=== PATIENT | male | born 1990 | race African-American/Black ===

== ENCOUNTER 2017-04-22 20:27 | Emergency (ER) | payer OTHER ==
[~2017-04-22] VITALS: Ht 182.9 cm; Wt 127.8 kg
[~2017-04-22 20:27] MED LIST: CIPROFLOXACN500 MG PO; FLEXERIL OR; NAPROSYN500 MG OR
[2017-04-22] MEDS ORDERED: MORPHINE SUL30 M3 PO (20:55)
[2017-04-22] MEDS ORDERED: FLEXERIL5 MG PO (20:56)
[2017-04-22] MEDS ORDERED: [UNRECOGNIZED DRUG - OTHER] (20:57)
[2017-04-22 21:23] LABS: URINE BILIRUBIN - DIPSTICK NEGATIVE (NEGATIVE); URINE BLOOD DIPSTICK NEGATIVE (NEGATIVE); URINE CLARITY CLEAR; URINE COLOR YELLOW; URINE GLUCOSE - DIPSTICK NEGATIVE (NEGATIVE); URINE KETONE NEGATIVE (NEGATIVE); URINE LEUK ESTERASE NEGATIVE (Negative); URINE NITRITE - DIPSTICK NEGATIVE (Negative); URINE PROTEIN - DIPSTICK NEGATIVE (NEG-TRACE); URINE SPECIFIC GRAVITY >=1.030
[2017-04-22 21:24] LABS: HEMATOCRIT 40.8 % (39.0-50.0); HEMOGLOBIN 14.4 g/dl (14.0-18.0); IMMATURE GRANULOCYTES 0.2 % (0.0-1.0); MEAN CELL VOLUME 82.8 fL CALC (80.0-100.0); MEAN CORPUSCULAR HGB 29.2 pG CALC (26.0-32.0); MEAN CORPUSCULAR HGB CONC 35.3 g/L CALC (32.0-36.0); NEUT# 2.33 thou/uL (1.82-7.42); RED BLOOD COUNT 4.93 mill/uL (4.70-6.10); RED CELL DISTRI WIDTH 13.4 % (11.5-15.5)
[2017-04-22 21:43] LABS: BARBITURATES NEGATIVE (NEGATIVE); COCAINE NEGATIVE (NEGATIVE); METHADONE NEGATIVE (NEGATIVE); OXCYCODONE NEGATIVE (NEGATIVE); TETRAHYDROCANNABIONOL NEGATIVE (NEGATIVE); TRICYLIC ANTIDEPRESSANTS NEGATIVE (NEGATIVE)
[2017-04-22 21:46] LABS: ALBUMIN 4.2 g/dL (3.2-5.0); ALKALINE PHOSPHATASE 113 u/l (38-126); ANION GAP 14 (6-22 (CALC)); BUN 16 mg/dL (9-20); BUN/CREATININE RATIO 12 (12-20 (CALC)); CALCIUM 9.7 mg/dL (8.4-10.2); CARBON DIOXIDE 28 mmol/l (22-30); CHLORIDE 104 mmol/l (95-108); CREATININE 1.3 mg/dL (0.7-1.3); GFR > 60 ML/MIN (>=60 (CALC)); GFR FOR AFR.AMER. > 60 ML/MIN (>=60 (CALC)); GLUCOSE 97 mg/dL (75-110); SGOT/AST 20 u/l (17-59); SGPT/ALT 46 u/l (21-72); SODIUM 142 mmol/l (137-146); TOTAL PROTEIN 7.1 g/dL (6.3-8.2)
[2017-04-22 21:57] LABS: MYOGLOBIN 35 ng/mL (0 - 121)
[2017-04-22] MEDS ORDERED: NAPROSYN500 MG PO (22:12)
[2017-04-22 22:25] VITALS: BP 141/79
== END 2017-04-22 22:25 | disposition home or self-care (01) | DRG 313 ==
LOC: ED 20:27
PROVIDERS: Emergency Medicine
DX: R07.89 Other chest pain (principal)

== ENCOUNTER 2020-12-31 21:15 | Observation (INO) | payer BC ==
[~2020-12-31] VITALS: Ht 182.9 cm; Wt 127.0 kg
[~2020-12-31 21:15] MED LIST changes: +FLEXERIL5 MG PO; +MORPHINE SUL30 M3 PO; +NAPROSYN500 MG PO; +[UNRECOGNIZED DRUG - OTHER]
--- NOTE | 2020-12-31 21:20 | NUR ---
PT WAS TAKEN TO ROOM 8 VIA W/C DUE TO ACTIVE CHEST PAIN.
[2020-12-31 22:20] LABS: HEMATOCRIT 39.8 % (39.0-50.0); HEMOGLOBIN 13.6 g/dl (14.0-18.0); IMMATURE GRANULOCYTES 0.2 % (0.0-5.0); MEAN CELL VOLUME 84.3 fL CALC (80.0-100.0); MEAN CORPUSCULAR HGB 28.8 pG CALC (26.0-32.0); MEAN CORPUSCULAR HGB CONC 34.2 g/dL CAL (32.0-36.0); NEUT# 2.44 thou/uL (1.82-7.42); RED BLOOD COUNT 4.72 mill/uL (4.70-6.10); RED CELL DISTRI WIDTH 13.4 % (11.5-15.5)
[2020-12-31 22:33] LABS: ALKALINE PHOSPHATASE 93 u/l (38-126); ANION GAP 11 (6-22 (CALC)); BILIRUBIN, TOTAL 0.8 mg/dL (0.0-1.4); BUN 15 mg/dL (9-20); BUN/CREATININE RATIO 15 (12-20 (CALC)); CARBON DIOXIDE 28 mmol/l (22-30); CHLORIDE 102 mmol/l (95-108); GFR > 60 ML/MIN (>=60 (CALC)); GFR FOR AFR.AMER. > 60 ML/MIN (>=60 (CALC)); POTASSIUM 3.8 mmol/l (3.5-5.1); SGOT/AST 24 u/l (17-59); SODIUM 137 mmol/l (137-146); TOTAL PROTEIN 7.2 g/dL (6.3-8.2)
--- NOTE | 2020-12-31 22:50 | NUR ---
PT IS RESTING IN ROOM WITH FAMILIAL SUPPORT OF AT BEDSIDE. NO MORE ACTIVE PAIN OR C/O.
--- NOTE | 2020-12-31 23:35 | NUR ---
PT RESTING AWAITING RESULTS. PT WAS ASKED TO PRODUCE UA SPECIMEN TO COMPLETE VISIT WORKUP AND REVIEWED POC WITH PATIENT AGAIN.
--- NOTE | 2021-01-01 00:53 | NUR ---
PT CONSULTED WITH MD AND WAS INFORMED IT WAS IN HIS BEST INTEREST TO BE ADMITTED TO OBSERVATION TO MONITOR. PT WAS UPSET ABOUT STAYING AND VERBALIZED HE WAS CONTEMPLATING GOING HOME. PRESENT IN THE ROOM AT TIME OF CONVERSATION AND VOCALIZED HER BELIEF THAT HER SHOULD NOT SIGN OUT AGAINST MEDICAL ADVICE. GAVE PT AND TIME TO COMMUNICATE AND DECIDE ON ADMISSION.
[2021-01-01 00:54] LABS: URINE BILIRUBIN - DIPSTICK NEGATIVE (NEGATIVE); URINE BLOOD DIPSTICK NEGATIVE (NEGATIVE); URINE COLOR YELLOW; URINE GLUCOSE - DIPSTICK NEGATIVE (NEGATIVE); URINE KETONE NEGATIVE (NEGATIVE); URINE LEUK ESTERASE NEGATIVE (NEGATIVE); URINE PH 6.5 (4.5-8.0); URINE PROTEIN - DIPSTICK NEGATIVE (NEG-TRACE); URINE SPECIFIC GRAVITY 1.025; URINE UROBILINOGEN - DIPSTICK 0.2 E.U./dL (0.2)
[2021-01-01 00:58] LABS: URINE NITRITE - DIPSTICK NEGATIVE (Negative)
--- NOTE | 2021-01-01 01:12 | NUR ---
CAME OUT OF ROOM TO LET STAFF KNOW THAT THEY HAVE AGREED HE WILL BE ADMITTED FOR FURTHER TESTING. LEFT FOR HOME. COVID SWAB OBTAINED AND PT UPDATED ON THE WAIT TIME UNTIL HE CAN TRANSFER TO THE INPATIENT FLOOR.
[2021-01-01 02:25] VITALS: BP 132/92
--- NOTE | 2021-01-01 02:41 | NUR ---
RECEIVED REPORT FROM ED NURSE ZHEN, PATIENT TRANSPORTED VIA WHEELCHAIR, AMULATED TO THE BED,STEADY GAIT, DENIES CHEST DISCOMFORTS BREATHING EVEN UNLABORED, ORINETED TO ROOM AND CALL LIGHT SYSTEM.
--- NOTE | 2021-01-01 02:55 | NUR ---
TELE BOX APPLIED, NITRO PASTE ON PER ORDER, REPORT CALLED AND PT WILL BE ESCORTED UP TO ROOM VIA W/C BY RN.
[2021-01-01 04:00] VITALS: BP 115/61
--- NOTE | 2021-01-01 04:05 | NUR ---
PATIENT APPEASR TO BE SLEEPING WITH EYES CLOSED BREATHING EVEN UNLABORED, DENIES CHEST DISCOMFORTS CALL LIGHT AT REACH.
[2021-01-01 07:34] VITALS: BP 117/66
--- NOTE | 2021-01-01 07:40 | NUR ---
SHIFT CHANGE REPORT, PT SLEEPING BUT AROUSES TO VERBAL STIMULI, ORIENTED, C/O HEADACHE @ 6/10 AT THIS TIME, DENIES CHEST PAIN, STATES HE IS HUNGRY, TELE MONITOR IN PLACE, CALL HODGE IN REACH, BED LOCKED IN LOWEST POSITION.
[2021-01-01 10:44] VITALS: BP 127/71
--- NOTE | 2021-01-01 12:13 | NUR ---
RESTING IN BED, REQUESTING ALTERNATE MEAL AND DIETARY NOTIFIED, C/O PAIN IN MID UPPER BACK AND CONCERN ADDRESSED, WILL CONTINUE TO MONITOR.
[2021-01-01] MEDS ORDERED: NAPROXEN500 MG PO (12:24)
== END 2021-01-01 14:41 | disposition home or self-care (01) | DRG 313 ==
LOC: ED 21:15 → ED-I 01-01 01:10 → ED 01-01 01:27 → MS2 01-01 01:28
PROVIDERS: Emergency Medicine; ADMIT Internal Medicine; ATTEND Internal Medicine
DX: R07.9 Chest pain, unspecified (principal); R94.31 Abnormal electrocardiogram [ECG] [EKG]; I10 Essential (primary) hypertension; Z20.822 Contact with and (suspected) exposure to COVID-19
CPT/HCPCS: G0378; S0164

== ENCOUNTER 2021-03-20 07:09 | Emergency (ER) | payer BC ==
[~2021-03-20 07:09] MED LIST changes: +NAPROXEN500 MG PO
[2021-03-20 09:30] VITALS: BP 144/75
== END 2021-03-20 09:30 | disposition home or self-care (01) | DRG 179 ==
LOC: ED 07:09
DX: U07.1 COVID-19 (principal)

== ENCOUNTER 2021-03-26 02:04 | Observation (INO) | payer BC ==
[2021-03-26 02:53] LABS: HEMATOCRIT 40.2 % (39.0-50.0); HEMOGLOBIN 14.3 g/dl (14.0-18.0); IMMATURE GRANULOCYTES 0.3 % (0.0-5.0); MEAN CELL VOLUME 82.7 fL CALC (80.0-100.0); MEAN CORPUSCULAR HGB 29.4 pG CALC (26.0-32.0); MEAN CORPUSCULAR HGB CONC 35.6 g/dL CAL (32.0-36.0); NEUT# 1.66 thou/uL (1.82-7.42); RED BLOOD COUNT 4.86 mill/uL (4.70-6.10); RED CELL DISTRI WIDTH 12.7 % (11.5-15.5); URINE BILIRUBIN - DIPSTICK NEGATIVE (NEGATIVE); URINE BLOOD DIPSTICK NEGATIVE (NEGATIVE); URINE COLOR YELLOW; URINE GLUCOSE - DIPSTICK NEGATIVE (NEGATIVE); URINE KETONE NEGATIVE (NEGATIVE); URINE LEUK ESTERASE NEGATIVE (NEGATIVE); URINE PH 6.5 (4.5-8.0); URINE PROTEIN - DIPSTICK NEGATIVE (NEG-TRACE); URINE SPECIFIC GRAVITY 1.015
[2021-03-26 02:55] LABS: URINE NITRITE - DIPSTICK NEGATIVE (Negative)
[2021-03-26 03:07] LABS: ALBUMIN 4.1 g/dL (3.2-5.0); ALKALINE PHOSPHATASE 65 u/l (38-126); ANION GAP 15 (6-22 (CALC)); BILIRUBIN, TOTAL 0.7 mg/dL (0.0-1.4); BUN 10 mg/dL (9-20); BUN/CREATININE RATIO 9 (12-20 (CALC)); CARBON DIOXIDE 24 mmol/l (22-30); CHLORIDE 100 mmol/l (95-108); GFR > 60 ML/MIN (>=60 (CALC)); GFR FOR AFR.AMER. > 60 ML/MIN (>=60 (CALC)); POTASSIUM 3.8 mmol/l (3.5-5.1); SGOT/AST 29 u/l (17-59); SODIUM 134 mmol/l (137-146); TOTAL PROTEIN 7.2 g/dL (6.3-8.2)
[2021-03-26 05:25] VITALS: BP 143/88
[2021-03-26 08:20] VITALS: BP 142/78
[2021-03-26 10:30] VITALS: BP 146/78
[2021-03-26 15:35] VITALS: BP 141/76
[2021-03-26 19:41] VITALS: BP 134/78
[2021-03-27 04:00] VITALS: BP 136/79
[2021-03-27 06:12] LABS: ANION GAP 11 (6-22 (CALC)); BUN 9 mg/dL (9-20); BUN/CREATININE RATIO 9 (12-20 (CALC)); CARBON DIOXIDE 25 mmol/l (22-30); CHLORIDE 101 mmol/l (95-108); CREATININE 1.1 mg/dL (0.7-1.3); GFR > 60 ML/MIN (>=60 (CALC)); GFR FOR AFR.AMER. > 60 ML/MIN (>=60 (CALC)); POTASSIUM 3.8 mmol/l (3.5-5.1); SODIUM 134 mmol/l (137-146)
[2021-03-27 06:14] LABS: HEMATOCRIT 38.1 % (39.0-50.0); HEMOGLOBIN 13.1 g/dl (14.0-18.0); MEAN CELL VOLUME 84.3 fL CALC (80.0-100.0); MEAN CORPUSCULAR HGB CONC 34.4 g/dL CAL (32.0-36.0); NEUT# 2.19 thou/uL (1.82-7.42); RED BLOOD COUNT 4.52 mill/uL (4.70-6.10)
[2021-03-27 08:11] VITALS: BP 155/97
[2021-03-27] MEDS ORDERED: TRI-BUFF ASA325 M2 PO (11:46)
[2021-03-27] MEDS ORDERED: DEXAMETHASON6 MG PO (11:46)
[2021-03-27] MEDS ORDERED: ZITHROMAX250 MG PO (11:47)
== END 2021-03-27 12:51 | disposition home or self-care (01) | DRG 177 ==
LOC: ED 02:04 → ED-I 04:30 → ED 04:45 → MS2 04:46 → UNDODEPER 05:10 → MS2 14:01
PROVIDERS: Emergency Medicine; ADMIT Hospitalist; ATTEND Hospitalist
DX: U07.1 COVID-19 (principal); J12.82 Pneumonia due to coronavirus disease 2019; R06.03 Acute respiratory distress; D70.9 Neutropenia, unspecified; I10 Essential (primary) hypertension
CPT/HCPCS: G0378; J1650; Q9967

== ENCOUNTER 2021-12-23 20:30 | Emergency (ER) | payer BC ==
[~2021-12-23] VITALS: Ht 182.9 cm; Wt 130.0 kg
[~2021-12-23 20:30] MED LIST changes: +DEXAMETHASON6 MG PO; +TRI-BUFF ASA325 M2 PO; +ZITHROMAX250 MG PO
[2021-12-23 20:46] VITALS: BP 140/87
[2021-12-23 21:00] LABS: HEMATOCRIT 42.2 % (39.0-50.0); HEMOGLOBIN 14.3 g/dl (14.0-18.0); IMMATURE GRANULOCYTES 0.2 % (0.0-5.0); MEAN CELL VOLUME 82.7 fL CALC (80.0-100.0); MEAN CORPUSCULAR HGB CONC 33.9 g/dL CAL (32.0-36.0); NEUT# 2.92 thou/uL (1.82-7.42); RED BLOOD COUNT 5.1 mill/uL (4.70-6.10); RED CELL DISTRI WIDTH 13.2 % (11.5-15.5)
[2021-12-23 21:01] VITALS: BP 140/78
[2021-12-23 21:16] VITALS: BP 137/92
[2021-12-23 21:18] LABS: ALBUMIN 4.4 g/dL (3.2-5.0); AMYLASE 99 u/l (30-110); ANION GAP 10 (6-22 (CALC)); BILIRUBIN, TOTAL 0.9 mg/dL (0.0-1.4); BUN 11 mg/dL (9-20); BUN/CREATININE RATIO 10 (12-20 (CALC)); CARBON DIOXIDE 28 mmol/l (22-30); CHLORIDE 106 mmol/l (95-108); CREATININE 1.1 mg/dL (0.7-1.3); GFR > 60 ML/MIN (>=60 (CALC)); GFR FOR AFR.AMER. > 60 ML/MIN (>=60 (CALC)); LIPASE 117 u/l (23-300); POTASSIUM 3.8 mmol/l (3.5-5.1); SGOT/AST 30 u/l (17-59); SODIUM 140 mmol/l (137-146); TOTAL PROTEIN 7.3 g/dL (6.3-8.2)
[2021-12-23 21:19] LABS: ALKALINE PHOSPHATASE 100 u/l (38-126)
[2021-12-23 21:30] LABS: MYOGLOBIN 53 ng/mL (0 - 121)
[2021-12-23 21:31] VITALS: BP 144/79
[2021-12-23 21:42] LABS: ACT PARTIAL THROMBO TIME 26.1 SECONDS (20.0-32.5); PROTHROMBIN TIME 10.7 SECONDS (9.0-12.5)
[2021-12-23 21:46] LABS: D-DIMER 0.37 mg/L (0.19-0.60)
[2021-12-23] MEDS ORDERED: LISINOP/HCTZ1 TAB PO (22:15)
[2021-12-23] MEDS ORDERED: TORADOL PO (22:15)
[2021-12-23 22:25] VITALS: BP 144/79
== END 2021-12-23 22:35 | disposition home or self-care (01) | DRG 313 ==
LOC: ED 20:30
PROVIDERS: Family Medicine
DX: R07.9 Chest pain, unspecified (principal); I10 Essential (primary) hypertension; Z86.16 Personal history of COVID-19

== ENCOUNTER 2022-05-22 20:58 | Emergency (ER) | payer BC ==
[~2022-05-22] VITALS: Ht 182.9 cm; Wt 134.0 kg
[~2022-05-22 20:58] MED LIST changes: +LISINOP/HCTZ1 TAB PO; +TORADOL PO
[2022-05-22 21:06] VITALS: BP 116/74
[2022-05-22 21:16] VITALS: BP 129/72
[2022-05-22 21:54] LABS: HEMATOCRIT 37.8 % (39.0-50.0); HEMOGLOBIN 13.3 g/dl (14.0-18.0); IMMATURE GRANULOCYTES 0.1 % (0.0-5.0); MEAN CELL VOLUME 82.7 fL CALC (80.0-100.0); MEAN CORPUSCULAR HGB 29.1 pG CALC (26.0-32.0); MEAN CORPUSCULAR HGB CONC 35.2 g/dL CAL (32.0-36.0); NEUT# 6.34 thou/uL (1.82-7.42); RED BLOOD COUNT 4.57 mill/uL (4.70-6.10)
[2022-05-22 22:06] LABS: ALBUMIN 4.4 g/dL (3.2-5.0); ALKALINE PHOSPHATASE 93 u/l (38-126); ANION GAP 13 (6-22 (CALC)); BILIRUBIN, TOTAL 1.2 mg/dL (0.0-1.4); BUN 12 mg/dL (9-20); BUN/CREATININE RATIO 9 (12-20 (CALC)); CARBON DIOXIDE 29 mmol/l (22-30); CHLORIDE 97 mmol/l (95-108); CPK 424 u/l (52-200); CREATININE 1.3 mg/dL (0.7-1.3); GFR FOR AFR.AMER. > 60 ML/MIN (>=60 (CALC)); GFR OTHER RACES > 60 ML/MIN (>=60 (CALC)); POTASSIUM 3.8 mmol/l (3.5-5.1); SGOT/AST 32 u/l (17-59); SODIUM 136 mmol/l (137-146); TOTAL PROTEIN 7.6 g/dL (6.3-8.2)
[2022-05-22 22:15] LABS: MYOGLOBIN 70 ng/mL (0 - 121)
[2022-05-22 22:58] VITALS: BP 126/76
== END 2022-05-22 23:09 | disposition home or self-care (01) | DRG 866 ==
LOC: ED 20:58
PROVIDERS: Family Medicine
DX: B34.9 Viral infection, unspecified (principal); Z86.16 Personal history of COVID-19; Z20.822 Contact with and (suspected) exposure to COVID-19